=== PATIENT | female | born 1975 | race African-American/Black ===

== ENCOUNTER 2018-06-29 23:18 | Emergency (ER) | payer SELFPAY ==
[~2018-06-29] VITALS: Ht 180.3 cm; Wt 152.0 kg
[2018-06-29 23:27] VITALS: BP 134/73
[2018-06-30] MEDS: predniSONE 20 MG TAB PO ONE (00:23)
[2018-06-30 00:45] VITALS: BP 132/69
== END 2018-06-30 00:45 | disposition home or self-care (01) ==
LOC: MED 23:18
DX: J20.9 Acute bronchitis, unspecified (principal); J45.909 Unspecified asthma, uncomplicated; J44.9 Chronic obstructive pulmonary disease, unspecified; Z87.891 Personal history of nicotine dependence
CPT/HCPCS: 71045; 99283; J7512; Q0092